=== PATIENT | female | born 1930 | race Hispanic/Latino ===

== ENCOUNTER 2018-07-26 21:56 | Observation (INO) | payer OTHER ==
[~2018-07-26] VITALS: Ht 157.5 cm; Wt 44.5 kg
[~2018-07-26 21:56] MED LIST: ASCO500T8 PO; CEPH250C3 PO; METF-444 PO; RAMI2.5C16 PO; SIMV40TA5 PO; TYL3 PO
[2018-07-26 22:36] LABS: BASOPHILS % (AUTO) 0.9 % (0.0-5.0); EOSINOPHILS % (AUTO) 2.5 % (0.0-8.0); HEMATOCRIT 33.4 % (36-48); LYMPHOCYTES % (AUTO) 25.3 % (21.0-51.0); MEAN CORPUSCULAR HEMOGLOBIN 31.1 pg (27.0-33.0); MEAN CORPUSCULAR HGB CONC 33.7 g/dL (32.0-36.0); MEAN CORPUSCULAR VOLUME 92.3 fL (79-99); MONOCYTES % (AUTO) 8.8 % (3.0-13.0); NEUTROPHILS % (AUTO) 62.5 % (40.0-77.0); PLATELET COUNT (AUTO) 125 K/uL (130-400); RED BLOOD CELL COUNT(AUTO) 3.62 MIL/uL (4.00-5.50); RED CELL DISTRIBUTION WIDTH 15.6 % (11.0-15.5); WHITE BLOOD COUNT (AUTO) 4.1 K/uL (4.8-10.8)
[2018-07-26 22:42] LABS: CREATININE 0.9 mg/dL (0.5-1.5); POTASSIUM 4.2 mmol/L (3.5-5.1)
[2018-07-26 22:47] LABS: ALBUMIN 3.4 g/dL (3.5-5.0); BILIRUBIN,TOTAL 0.5 mg/dL (0.2-1.0); TOTAL PROTEIN, SERUM 6.6 g/dL (6.0-8.3)
[2018-07-26 22:49] LABS: INR 0.99 (0.85-1.15); PARTIAL THROMBOPLASTIN TIME 27.3 SEC (26.3-35.5); PROTHROMBIN TIME 10.4 SEC (9.6-11.6)
[2018-07-26 22:54] LABS: B-TYPE NATRIURETIC PEPTIDE 285 pg/mL (0-100)
[2018-07-26] MEDS ORDERED: NITROGLYCERIN 0.4 MG SL TAB SL ONE (22:55)
[2018-07-26] MEDS ORDERED: ASPIRIN 325MG EC TAB 325 MG TABLET.DR PO ONE (22:55)
[2018-07-27 01:55] VITALS: BP 158/81
[2018-07-27 04:00] VITALS: BP 111/62
[2018-07-27] MEDS ORDERED: DEXTROSE 50%-WATER 50 ML DISP.SYRIN IV PRN (04:00)
[2018-07-27] MEDS ORDERED: GLUCAGON 1MG KIT 1 MG ML IM PRN (04:00)
[2018-07-27 05:15] VITALS: BP 107/55
[2018-07-27] MEDS ORDERED: NITROGLYCERIN 1GM/1 INCH PACKET TD SCH (06:00)
[2018-07-27] MEDS: INSULIN HUMULIN R 100 UNIT/ML 3ML SQ SCH ×2 (06:06→11:30)
[2018-07-27] MEDS: NITROGLYCERIN 1GM/1 INCH PACKET TD SCH ×2 (06:29→12:35)
[2018-07-27 08:00] VITALS: BP 133/65
[2018-07-27] MEDS ORDERED: ASPIRIN 81 MG EC TAB PO SCH (09:00)
[2018-07-27 12:00] VITALS: BP 142/76
--- NOTE | 2018-07-27 12:21 | NUR ---
DR. SRAVANTHI FISHMAN IN TO SEE PATIENT. NEW ORDERS RECEIVED.
--- NOTE | 2018-07-27 13:53 | NUR ---
INSTRUCTIONS DISCHARGE INSTRUCTIONS GIVEN TO PATIENT AND DAUGHTER USING TEACH BACK. NO NEW PRESCRIPTIONS WERE WRITTEN. DAUGHTER WILL CALL [facility] AND [facility] TOMORROW FOR F/U APPOINTMENTS D/T TODAY BEING SATURDAY. IV HAS BEEN REMOVED WITH TIP INTACT. DIRECT PRESSURE WAS APPLIED UNTIL BLEEDING CONTROLLED THEN SITE COVERED WITH GAUZE AND SECURED WITH A BAND-AID.
[2018-07-27] MEDS ORDERED: ATORVASTATIN CALCIUM 40 MG TABLET PO SCH (21:00)
== END 2018-07-27 14:50 | disposition home or self-care (01) ==
LOC: EDH 21:56 → EDHIP 07-27 00:03 → 4CH 07-27 00:46
PROVIDERS: ADMIT Internal Medicine Critical Care Medicine; ATTEND Internal Medicine Critical Care Medicine
DX: R07.9 Chest pain, unspecified (principal); I10 Essential (primary) hypertension; I25.10 Atherosclerotic heart disease of native coronary artery without angina pectoris; E78.5 Hyperlipidemia, unspecified; E11.9 Type 2 diabetes mellitus without complications; M19.90 Unspecified osteoarthritis, unspecified site; G30.9 Alzheimer's disease, unspecified; F02.80 Dementia in other diseases classified elsewhere, unspecified severity, without behavioral disturbance, psychotic disturbance, mood disturbance, and anxiety; Z79.899 Other long term (current) drug therapy; Z82.49 Family history of ischemic heart disease and other diseases of the circulatory system; Z83.3 Family history of diabetes mellitus; Z96.652 Presence of left artificial knee joint
CPT/HCPCS: 36415; 71045; 80053; 82948 ×2; 83880; 84484 ×2; 85025; 85610; 85730; 93005; 99284; G0378 ×15